=== PATIENT | female | born 1955 | race Caucasian/White ===

== ENCOUNTER → 2018-10-15 | Outpatient (CLI) | payer BC ==
--- NOTE | 2018-10-15 16:47 | KCIC ---
Bilateral digital screening mammograms: Reason for examination: Routine screening. New baseline. Interpretation was made with the benefit of CAD. The skin and nipples show no abnormalities. No abnormal axillary lymph nodes are seen. The breast parenchyma shows scattered fibroglandular density. (Breast density: Category B.) There are no dominant masses, suspicious calcifications or architectural distortions. A couple of small intramammary lymph nodes are seen on the right. Some benign calcifications are present. Impression: No evidence of malignancy. Recommend routine screening. BI-RADS category 2: Benign "Our facility is accredited by the [employer]amm[employer]." This patient's information has been entered into a reminder system for the patient to be notified with the results of her examination and a target date for the next mammogram. Electronically signed by: Shira Sparks MD (10/15/2018 4:44 PM) [id number]
== END | disposition home or self-care (01) ==
LOC: KCIC MAMMO 15:07
PROVIDERS: ATTEND Family Medicine
DX: Z12.31 Encounter for screening mammogram for malignant neoplasm of breast (principal); N64.89 Other specified disorders of breast
CPT/HCPCS: 77067

== ENCOUNTER → 2019-08-31 | Outpatient (CLI) | payer BC, MEDICARE ==
--- NOTE | 2019-08-31 16:05 | RAD ---
EXAMINATION: Magnetic resonance imaging (MRI) of the brain and brainstem without contrast 08/31/2019 3:30 PM HISTORY: Essential tremor of the head TECHNIQUE: Multiplanar multi-weighted MRI of the brain and brainstem was performed without intravenous contrast using the general brain protocol. COMPARISON: None available. FINDINGS: The scalp and calvarium are normal. The superior sagittal sinus demonstrates normal venous flow. The corpus callosum is normal in shape and signal intensity. The posterior fossa is unremarkable. The pituitary and sella are normal. The brainstem and craniocervical junction are unremarkable. Susceptibility artifact involving the central basal ganglia bilaterally is most suggestive of senescent calcifications. Diffusion weighted images reveal no hyperintensities to suggest acute cerebral infarction. The susceptibility weighted sequences reveal no evidence of acute or chronic hemorrhage. The ventricles are normal in size and position without evidence of hydrocephalus. The paranasal sinuses are normal. The visualized portions of the mastoids are unremarkable. The orbits appear normal. Normal flow voids are demonstrated in the carotid arteries and basilar artery. IMPRESSION: No significant intracranial abnormality is identified. No evidence for acute or subacute ischemia. Electronically signed by: Charleen Ochoa MD (08/31/2019 4:02 PM) [facility]
== END | disposition home or self-care (01) ==
LOC: MRI 14:43
PROVIDERS: ATTEND Nurse Practitioner Family
DX: G25.0 Essential tremor (principal)
CPT/HCPCS: 70551

== ENCOUNTER → 2020-06-07 | Outpatient (CLI) | payer MEDICARE ==
--- NOTE | 2020-06-07 15:33 | KCIC ---
Bilateral digital screening mammograms: Reason for examination: Routine screening. Comparison is made to previous study dated 10/15/2018. Interpretation was made with the benefit of CAD. The skin and nipples show no abnormalities. No abnormal axillary lymph nodes are seen. The breast par enchyma shows scattered fibroglandular density. (Breast density: Category B.) There are no dominant m asses, suspicious calcifications or architectural distortions. A few benign calcifications are again seen. Impression: No evidence of malignancy. Recommend routine screening. BI-RADS Category 2: Benign. "Our facility is accredited by the [employer]ammography Program." This patient's information has been entered into a reminder system for the patient to be notified wit h the results of her examination and a target date for the next mammogram. Electronically signed by: Shira Sparks MD (06/07/2020 3:31 PM) [id number]
--- NOTE | 2020-06-07 16:06 | KCIC ---
INDICATION: Screening for osteopenia/osteoporosis. Postmenopausal evaluation. COMPARISON: None. TECHNIQUE: Bone densitometry was performed through the lumbar spine and proximal femur. IMPRESSION: Lumbar Spine: BMD: 1.01 T-Score: -0.3 Range: Normal Proximal Femur: BMD: 0.8 T-Score: -1.2 Range: Osteopenic World Health Organization Criteria for Bone Density: T-Score: > -1.0: Normal Range < -1.0 to -2.5: Osteopenic Range < -2.5: Osteoporotic Range Electronically signed by: Boogie Mccrary MD (06/07/2020 4:03 PM) [id number]
== END ==
LOC: KCIC MAMMO 14:34
PROVIDERS: ATTEND Nurse Practitioner
DX: Z12.31 Encounter for screening mammogram for malignant neoplasm of breast (principal); N95.9 Unspecified menopausal and perimenopausal disorder; M85.88 Other specified disorders of bone density and structure, other site
CPT/HCPCS: 77067; 77080

== ENCOUNTER → 2021-08-01 | Outpatient (CLI) | payer MEDICARE ==
[~2021-08-01] MED LIST: BUPIVACAINE MPF 0.25% 10 ML VIAL. ONE; DEXAMETHASONE PRES.FREE 10 MG/ML VIAL. ONE; DIAZ5TAB PO; IOHEXOL 180 MG/ML 10 ML VIAL. ONE; MELO15TA6 PO; SERT100T PO
--- NOTE | 2021-08-01 11:18 | PDOC1 ---
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 Patient reports no recent injury or accident has significant pain in the knees bilaterally worse with stepping on stairs steps curbs etc. 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 Patient has had multiple x-rays showing osteoarthritis to a moderate extent in the bilateral knees. Patient has had intra-articular injections as well in the past as recently as 2018 which were helpful as well. PAST MEDICAL HISTORY: PMH: Arthritis, dizziness, cervical dystonia PREVIOUS SURGERIES: Past Surgical Hx: x2 CURRENT MEDICATIONS: Current Meds: Active Scripts Medications Dose Route/Sig Max Daily Dose Days Date Category Zoloft (Sertraline Hcl) 100 Mg Tablet 1 Tab PO HS 08/01/21 Reported Valium (Diazepam) 5 Mg Tablet 5 Mg PO HS 08/01/21 Reported Mobic (Meloxicam) 15 Mg Tablet 1 Tab PO DAILY 08/01/21 Reported ALLERGIES; Allergies: Coded Allergies: Penicillins (Verified Allergy, Unknown, Unknown, 08/01/21) FAMILY HISTORY: Family Hx: No major medical problems or conditions that she is aware of. SOCIAL HISTORY: Social Hx: Patient does not drink alcohol does not smoke or use any illegal illicit recreational drugs is lives with her spouse lives locally in [facility], works at [employer] at [employer] REVIEW OF SYSTEMS: ROS: Positive for those items mentioned in history of present illness, all systems are reviewed, otherwise negative ,and are complete full and well-documented on patient's chart. PHYSICAL EXAM: VS: Blood pressure is 149/82 pulse 79 respirations 18 temperature 98.1 F height is 5 feet 2 inches weight is 195 pounds. PE: PHYSICAL EXAMINATION: GENERAL: The patient is awake, alert, oriented, appropriate, very pleasant in demeanor HEENT: Shows normocephalic, atraumatic. Extraocular movements are intact and symmetrical. Oral cavity: Mucous membranes moist and pink. Dentition is intact. NECK: Shows anterior throat supple without palpable lymphadenopathy noted. Swallow reflex symmetrical. CHEST: Shows normal on inspection. Breath sounds are clear bilaterally, no rales rhonchi or wheezes auscultated. HEART: Shows S1, S2 clear. No murmurs auscultated. ABDOMEN: Soft, nontender, nondistended. No palpable organomegaly is noted. BACK: Shows spine grossly in the midline. Normal-appearing cervical lordotic curvature. There is slightly increased thoracic kyphosis, some minor flattening of the lumbar lordotic curvature. Lumbar paraspinous muscles show symmetrical on inspection, on palpation shows some moderate tenderness diffusely throughout the upper, middle and lower distribution of the paraspinous musculature, without specific trigger points, without radiation of pain. The patient has good rotational motion of the lumbar spine, both laterally as well as extension and flexion without significant difficulty. No tenderness over the spinous processes, sacrum or sacroiliac regions. EXTREMITIES: Lower extremities show deep tendon reflexes 2+ in the patellar and tendo calcaneus tendons. Motor exam is 5 on a scale of 5 with right dorsiflexion, extension, quadriceps and hamstring flexion and 5/5 on the left. Peripheral pulses are 1 posterior tibial. No peripheral edema is noted bilaterally. Lower extremities are warm and dry to touch, equal in color and appearance. Patient's knees shows full rotation of motion with good hinge motion without crepitus or ratcheting bilaterally. Patient has significant tenderness in the medial collateral ligaments bilaterally but only with direct palpation no significant tenderness on the lateral aspects. SKIN: Shows warm and dry, good turgor. No edema. No sores, rashes or bruising throughout. IMPRESSION: Impression: 66-year-old female with long history of bilateral knee joint pain with history of osteoarthritis bilateral knees. Plain films bilateral knees as noted History of arthritis Plan: Options were discussed with patient including serve medical managements physical therapy and interventional techniques. Patient is currently doing physical therapy exercises and taking meloxicam daily to left. Medical techniques that she had good success with this in the past. We discussed bilateral intra-articular knee joint injections with fluoroscopic guidance using description as well as anatomical models to describe the procedure. Patient agrees and like to proceed. Risk were discussed including not limited to bleeding infection possibility of intravascular injection sequelae spread local anesthetic numbness side effects steroid medications post fluoroscopy and portals regarding pain control. Patient understands wished to proceed. Patient return to clinic in approximately 6 weeks for follow-up was given instructions well side effects to be aware of. Under sterile prep and drape patient in supine position using C-arm fluoroscopic guidance patient's bilateral knees were sterilely prepped and draped in usual fashion. Using C-arm fluoroscopy the medial aspect of the knee joint was iden tified and visualized and using 1% lidocaine 25-gauge needle of the area of the skin overlying the medial knee compartment was anesthetized. Using a 22-gauge quickie needle with stylette the joint was entered under direct visualization without difficulty. Stylet was removed at this time 2 cc of contrast was then injected with good spread within the knee joint itself without washout or uptake. At this time solution containing 3 cc each knee of 0.25 bupivacaine for total of 6 cc and a total of 20 mg dexamethasone, 10 mg per knee, were then injected. [place] were withdrawn and sterile bandages were applied. Patient tolerated procedure well and had no complications. TYLER CONNER MD August 01, 2021 11:18
--- NOTE | 2021-08-01 11:19 | PDOC4 ---
Procedure Note: ICD 10 Code: ICD 10 Code: M2 5.563 M17.13 Procedure Note: Patient was consented for bilateral intra-articular knee joint injections with fluoroscopic guidance. Risk were discussed including but not limited to bleeding infection possibility of intravascular injection sequelae spread local anesthetic numbness side effects steroid medication exposure fluoroscopy and portals regarding pain control. Patient understands wished to proceed. Under sterile prep and drape patient in supine position using C-arm fluoroscopic guidance patient's bilateral knees were sterilely prepped and draped in usual fashion. Using C-arm fluoroscopy the medial aspect of the knee joint was identified and visualized and using 1% lidocaine 25-gauge needle of the area of the skin overlying the medial knee compartment was anesthetized. Using a 22- gauge quickie needle with stylette the joint was entered under direct visualization without difficulty. Stylet was removed at this time 2 cc of contrast was then injected with good spread within the knee joint itself without washout or uptake. At this time solution containing 3 cc each knee of 0.25 bupivacaine for total of 6 cc and a total of 20 mg dexamethasone, 10 mg per knee, were then injected. [place] were withdrawn and sterile bandages were applied. Patient tolerated procedure well and had no complications. TYLER CONNER MD August 01, 2021 11:19
== END | disposition home or self-care (01) ==
LOC: PNCL 09:06
PROVIDERS: ATTEND Anesthesiology
DX: M17.0 Bilateral primary osteoarthritis of knee (principal); Z79.899 Other long term (current) drug therapy; Z88.0 Allergy status to penicillin
CPT/HCPCS: 20610; 77002; J1100; J3490; Q9965